=== PATIENT | male | born 1955 | race Caucasian/White ===

== ENCOUNTER 2018-10-09 08:34 | Day surgery (SDC) | payer BC ==
[~2018-10-09 08:34] MED LIST: CEFAZOLIN 2 Gram 2 GM/50 ML BAG IVPB ONE
[2018-10-09] MEDS ORDERED: ONDANSETRON HCL IV 4 MG/2 ML VIAL IVP ONE (08:35)
[2018-10-09] MEDS ORDERED: BUPIVACAINE 0.25% MPF 30ML VIAL IVP ONE (08:35)
[2018-10-09] MEDS ORDERED: METHYLPREDNISOLONE 40MG/VIAL IM ONE (08:35)
[2018-10-09] MEDS ORDERED: LABETALOL HCL 5MG/ML, 20ML VIAL IV ONE (08:35)
[2018-10-09] MEDS ORDERED: GLYCOPYRROLATE 0.2 MG/ML ML IV ONE (08:35)
[2018-10-09] MEDS ORDERED: MORPHINE SULFATE PF 10MG/10ML VIAL IV ONE (08:35)
[2018-10-09] MEDS ORDERED: KETAMINE HCL 100MG/1ML VIAL INJ ONE (08:35)
[2018-10-09] MEDS ORDERED: PROPOFOL 10 MG/ML VIAL IV ONE (08:35)
[2018-10-09] MEDS ORDERED: EPHEDRINE SULFATE 50 MG/ML ML IV ONE (08:35)
[2018-10-09] MEDS ORDERED: BUPIVACAINE 0.5% W/EPI MPF 30 ML VIAL IVP ONE (08:35)
[2018-10-09] MEDS ORDERED: DEXAMETHASONE 4 MG/ML 1ML VIAL IVP ONE (08:35)
[2018-10-09] MEDS ORDERED: FLUMAZENIL 1MG/10ML VIAL IV ONE (08:35)
[2018-10-09] MEDS ORDERED: BUPIVACAINE LIPOSOME/PF 133MG/10ML VIAL IV ONE (08:35)
[2018-10-09] MEDS ORDERED: MIDAZOLAM HCL 2MG/2ML VIAL IV ONE (08:35)
[2018-10-09] MEDS ORDERED: KETOROLAC 30 MG/ML VIAL IVP ONE (08:35)
[2018-10-09 08:55] LABS: BASO % 0.9 % (0-6); EOS % 3.2 % (0-6); GRAN % 55.6 % (47-80); HEMOGLOBIN 16.3 gm/dl (14.0-18.0); LYMPH % 27.7 % (16-45); MEAN CELL VOLUME 87.2 fl (81-97); MEAN CORPUSCULAR HEMOGLOBIN 30.2 pg (27-33); MEAN CORPUSCULAR HGB CONC 34.7 g/dl (32-36); MEAN PLATELET VOLUME 9.6 fl (7.4-10.4); MONO % 12.6 % (0-9); PLATELET COUNT 244 K/uL (130-400); RED BLOOD COUNT 5.39 M/uL (4.40-5.70); RED CELL DISTRIBUTION WIDTH 12.9 % (11.5-14.5); WHITE BLOOD COUNT W/O DIFF 8.5 K/uL (4.2-12.2)
[2018-10-09 09:10] LABS: BLOOD UREA NITROGEN 18 mg/dL (8-23); EST GLOMERULAR FILTRATION RATE > 60 mL/min; GLUCOSE,RANDOM 170 mg/dL (74-109)
--- NOTE | 2018-10-10 08:30 | Operative Note ---
DATE OF SERVICE: 10/09/2018. DATE OF SURGERY: 10/09/2018. PREOPERATIVE DIAGNOSIS: Severe impingement, right shoulder, question tear of the rotator cuff. POSTOPERATIVE DIAGNOSES: 1. Adhesive capsulitis, right shoulder. 2. Complex glenohumeral labral tear. 3. Profound external impingement, right shoulder. 4. Arthrosis of the right distal clavicle. OPERATION: 1. Right shoulder arthroscopy with intraarticular debridement. 2. Right shoulder open acromioplasty, coracoacromial ligament resection, subacromial bursectomy. 3. Right shoulder distal clavicle resection. Staff Surgeon: Liu Arboleda D.O. Anesthesia: General. PREPARATION: ChloraPrep. INDIVIDUAL CONSIDERATIONS: None. PROCEDURE: Patient was taken to the operating room, placed supine on the operating table. He had successful induction with general anesthetic. He was then placed in a semi-seated beach chair position, and the right arm and shoulder were prepped and draped in the usual fashion. Patient had posterior portal identified for arthroscopy. Prior to this, I manipulated the shoulder. The shoulder was stuck at about 80 degrees of abduction. I was able to easily manipulate him to full abduction and rotation. After I had done the planning of the posterior portal and infiltrating of 0.5% Marcaine with epinephrine, I placed an 18-gauge spinal needle into the joint. The joint was inflated with a 60 mL syringe. A stab wound was made and a blunt trocar with the scope was placed in the joint. The joint was inflated with normal saline. An anterior accessory portal was then made just inferior to the intact long head of the biceps tendon in a retrograde fashion with a Wissinger roderick, and the joint was irrigated out. He had multiple tears to the labrum. These were smoothed off with a shaver. There was a partial tear of the rotator cuff underneath which was debrided with a shaver. Glenohumeral joint was normal. Subscap tendon was normal. No loose bodies inferiorly or significant synovitis inferiorly, and the long head of the biceps tendon was intact. After irrigation, portals were closed with juve. Patient anterior bursa and subacromial space and distal clavicle. Skin was again infiltrated with 0.5% Marcaine with epinephrine prior. Sharp dissection carried down through skin and subcutaneous tissue. Small veins were coagulated with a Bovie. An anterior deltoid interval was developed. Care was taken not to split the deltoid more than about 4 cm distal to the anterior tip of the acromion to prevent injury to the axillary nerve. Once in the subacromial space, there was a large, downsloping acromion, huge bursa to the AC joint. Deltoid was then taken subperiosteally off the anterior aspect of the acromion, over the top of the CA ligament, and off the anterior aspect of the highly degenerated distal clavicle. CA ligament was resected with a Bovie. Distal clavicle was resected with an oscillating saw, taking around a cm. Downsloping acromion was present with spurs extending to the AC joint, and an anterior acromioplasty was performed, taking about a cm, tapering to a wedge posteromedially to include the spurs to the AC joint. The undersurface was smoothed off with a rasp. An extremely thickened bursa was removed. I now had a good look at the rotator cuff. It looked contused, but it did not require repair. After irrigation, deltoid was reattached to the remaining acromion with multiple interrupted #2 Vicryl going directly through the dome of the acromion. The periosteal cuff and distal clavicle were closed with a running #2 Vicryl. Anterior deltoid interval was closed with a running #1 Vicryl. Subcu was closed with 2-0 Plus Vicryl, and skin was closed with juve. A 22 gauge spinal needle was placed in the joint. The joint was inflated with 5 mL of 0.5% Marcaine with epinephrine, along with 40 mg of Depo-Medrol 40, and then underneath the subacromial space an 18 gauge needle was placed, and I injected that with about 15 mL of 0.5% Marcaine with epinephrine, along with another 10 mg of morphine and 40 mg of Depo-Medrol. A sterile, bulky, compressive dressing and sling were applied. Patient tolerated the procedures well. Needle and sponge counts were correct. Estimated blood loss was minimal, and he was taken back to recovery in good condition. There were no complications. [place]
== END 2018-10-09 13:02 | disposition home or self-care (01) ==
LOC: SUR 08:34
PROVIDERS: ATTEND Orthopaedic Surgery
DX: S43.431A Superior glenoid labrum lesion of right shoulder, initial encounter (principal); M75.01 Adhesive capsulitis of right shoulder; M19.011 Primary osteoarthritis, right shoulder; I10 Essential (primary) hypertension; E78.00 Pure hypercholesterolemia, unspecified; I25.2 Old myocardial infarction; Z95.5 Presence of coronary angioplasty implant and graft
CPT/HCPCS: 76942; 80048; 85025; C9290; J1030; J1885; J2405; J3490

== ENCOUNTER → 2018-11-20 | Day surgery (SDC) | payer BC ==
[~2018-11-20] MED LIST changes: +ACETAMINOPHEN 1,000 MG/100 ML BTL IV ONE; +BUPIVACAINE 0.5% W/EPI MPF 30 ML VIAL IVP ONE; +FENTANYL PF 100MCG/2ML VIAL IV ONE; +KETOROLAC 30 MG/ML VIAL IVP ONE; +LIDOCAINE 2% MDV (20MG/ML) 20ML VIAL IV ONE; +PROPOFOL 10 MG/ML VIAL IV ONE; +SEVOFLURANE 250 ML INH ONE
[2018-11-20 10:12] LABS: BASO % 0.4 % (0-6); EOS % 2.1 % (0-6); GRAN % 60.3 % (47-80); HEMATOCRIT 47.2 % (42.0-52.0); HEMOGLOBIN 15.4 gm/dl (14.0-18.0); MEAN CELL VOLUME 89.1 fl (81-97); MEAN CORPUSCULAR HEMOGLOBIN 29.1 pg (27-33); MEAN CORPUSCULAR HGB CONC 32.6 g/dl (32-36); MEAN PLATELET VOLUME 9.5 fl (7.4-10.4); MONO % 12.2 % (0-9); PLATELET COUNT 272 K/uL (130-400); RED CELL DISTRIBUTION WIDTH 13.1 % (11.5-14.5); WHITE BLOOD COUNT W/O DIFF 9.6 K/uL (4.2-12.2)
[2018-11-20 10:26] LABS: BLOOD UREA NITROGEN 19 mg/dL (8-23); EST GLOMERULAR FILTRATION RATE > 60 mL/min; GLUCOSE,RANDOM 197 mg/dL (74-109)
--- NOTE | 2018-11-21 09:20 | Operative Note ---
DATE OF SURGERY: 11/20/2018 PREOPERATIVE DIAGNOSIS: Left cubital tunnel syndrome. POSTOPERATIVE DIAGNOSIS: Left cubital tunnel syndrome. OPERATION: Left cubital tunnel release. Staff Surgeon: Liu Arboleda MD Anesthesia: General. Preparation: Chloraprep. Individual Considerations: None. PROCEDURE: The patient was taken to the operating room and placed supine on the operating room table. He had a successful induction with general anesthetic. His left upper extremity was prepped and draped in the usual fashion. The limb was elevated, tourniquet was inflated to 250 mmHg. The patient had about a 5 cm incision directly over the ulnar nerve at the elbow. Sharp dissection carried down through the skin and then careful scissors dissection carried down directly over the nerve. A liudmila was made over the cubital tunnel and the nerve was carefully released in the tunnel distally as it dove into the flexor pronator mass and proximally up into the arm as the tunnel ended. The nerve otherwise looked good. The tunnel was quite tight and then centrally, right underneath the medial epicondyle, the nerve was a bit reddened. Tourniquet was let down, hemostasis was obtained with compression. The subcu was closed with 2-0 plus Vicryl running and the skin was closed with juve and a bulky compressive dressing was applied. He tolerated procedure well. Needle and sponge counts were correct. Estimated blood loss was minimal. The patient was taken back to recovery in good condition. There were no complications. [facility]
== END | disposition home or self-care (01) ==
LOC: SUR 09:45
PROVIDERS: ATTEND Orthopaedic Surgery
DX: G56.22 Lesion of ulnar nerve, left upper limb (principal); I10 Essential (primary) hypertension; E78.00 Pure hypercholesterolemia, unspecified; E11.9 Type 2 diabetes mellitus without complications; Z79.4 Long term (current) use of insulin; I25.2 Old myocardial infarction; Z95.5 Presence of coronary angioplasty implant and graft
CPT/HCPCS: 64718; 01710; 85025; 80048; J1885; J3010; J0690

== ENCOUNTER 2018-12-19 09:02 | Day surgery (SDC) | payer BC ==
[~2018-12-19 09:02] MED LIST changes: -BUPIVACAINE 0.5% W/EPI MPF 30 ML VIAL IVP ONE; -FENTANYL PF 100MCG/2ML VIAL IV ONE; -KETOROLAC 30 MG/ML VIAL IVP ONE; -LIDOCAINE 2% MDV (20MG/ML) 20ML VIAL IV ONE; -PROPOFOL 10 MG/ML VIAL IV ONE; -SEVOFLURANE 250 ML INH ONE
[2018-12-19] MEDS ORDERED: PROPOFOL 10 MG/ML VIAL IV ONE (09:03)
[2018-12-19] MEDS ORDERED: ONDANSETRON HCL IV 4 MG/2 ML VIAL IVP ONE (09:03)
[2018-12-19] MEDS ORDERED: MIDAZOLAM HCL 2MG/2ML VIAL IV ONE (09:03)
[2018-12-19] MEDS ORDERED: SEVOFLURANE 250 ML INH ONE (09:03)
[2018-12-19] MEDS ORDERED: LIDOCAINE 2% MDV (20MG/ML) 20ML VIAL IV ONE (09:03)
[2018-12-19] MEDS ORDERED: FENTANYL PF 100MCG/2ML VIAL IV ONE (09:03)
[2018-12-19] MEDS ORDERED: MORPHINE SULFATE 4 MG/ML VIAL ONE (11:03)
[2018-12-19] MEDS ORDERED: MORPHINE SULFATE 5 MG/ML PFS IVP ONE (11:35)
[2018-12-19] MEDS ORDERED: METHYLPREDNISOLONE 40MG/VIAL IM ONE (11:35)
[2018-12-19] MEDS ORDERED: BUPIVACAINE 0.5% W/EPI MPF 30 ML VIAL SQ ONE (11:35)
[2018-12-19] MEDS ORDERED: RINGERS SOLUTION,LACTATED 300 ML IV ONE (11:43)
--- NOTE | 2018-12-20 08:30 | Operative Note ---
DATE OF SURGERY: 12/19/2018 PREOPERATIVE DIAGNOSIS: Internal derangement of right knee. POSTOPERATIVE DIAGNOSIS: Flap tear involving the posteromedial horn of the medial meniscus. OPERATION: Right knee arthroscopy with partial medial meniscectomy. Staff Surgeon: Liu Arboleda MD Anesthesia: General. Preparation: Chloraprep. Individual Considerations: None. PROCEDURE: The patient was taken to the operating room and placed supine on the operating room table. The patient had a successful induction with general anesthetic. The left lower extremity was prepped and draped in the usual fashion. The patient had a superolateral inflow cannula placed. Skin was infiltrated with 0.5% Marcaine with epinephrine prior. The knee was inflated with normal saline. An inferomedial and an inferolateral portal were made in a similar fashion. The arthroscope was introduced through the inferolateral portal up into the pouch. Patellofemoral joint was normal. No loose bodies were seen in the pouch or either gutter. Medial compartment structures were well seen and probed and found to be normal except for an obvious radial flap tear involving the posterior medial corner of the medial meniscus. This was debrided back to a stable rim with a basket forceps and a shaver. Articular cartilage was normal. Cruciates were normal. Lateral compartment structures were normal. The knee was then irrigated out with saline to remove loose floating debris. Portals were closed with juve, and 20 mL of 0.25% Marcaine with epinephrine along with 4 mg of morphine and 40 mg of Depo-Medrol were injected into the knee. A sterile bulky compressive dressing was applied. The patient tolerated procedure well. Needle and sponge counts were correct. Estimated blood loss was minimal. The patient was taken back to recovery in good condition. There were no complications. [facility]
== END 2018-12-19 12:23 | disposition home or self-care (01) ==
LOC: SUR 09:02
PROVIDERS: ATTEND Orthopaedic Surgery
DX: S83.241A Other tear of medial meniscus, current injury, right knee, initial encounter (principal); I10 Essential (primary) hypertension; E78.00 Pure hypercholesterolemia, unspecified; E11.9 Type 2 diabetes mellitus without complications; Z79.4 Long term (current) use of insulin; I25.10 Atherosclerotic heart disease of native coronary artery without angina pectoris; I34.0 Nonrheumatic mitral (valve) insufficiency; Z95.5 Presence of coronary angioplasty implant and graft
CPT/HCPCS: 29881; 01400; J2405; J3010; J0690; J2270 ×2; J1030; J7120